=== PATIENT | male | born 1980 | race African-American/Black ===

== ENCOUNTER 2017-04-10 13:50 | Emergency (ER) | payer OTHER ==
[~2017-04-10] VITALS: Ht 188 cm; Wt 110.2 kg
--- NOTE | ~2017-04-10 | CR72 ---
[facility] A Service of [facility] / [facility] RADIOLOGY TEXT RESULTS PATIENT: JELENA TAVAREZ LOCATION: [facility] : 76 UNIT #: [id number] AGE: [address]: Ernesto Kaba MD SEX: M ORDER DR: [id number] [facility] [address] [place], [place] [address] [id number] MR#: [id number] Acc #: [id number] NAME: JELENA TAVAREZ. : 1980 SEX: M STUDY DATE/TIME: 04/10/2017 14:41 UNIT: [facility] ROOM: STUDY DESCRIPTION: CR Chest Single View Portable Attending Physician: Ernesto Kaba M.D. Ordering Physician: Ernesto Kaba M.D. Primary Care Physician: Primary Care Physician No MEDICAL IMAGING REPORT This report is preliminary unless electronic signature is present EXAM Portable chest 04/10/2017 HISTORY Shortness of breath chest pain and fatigue beginning 1 day ago. FINDINGS A single AP portable view of the chest shows both lungs to be clear. The heart is normal in size. The mediastinal contour is normal. No significant bone abnormalities are seen. IMPRESSION Normal portable chest. Dictated by... Juan José Oro M.D. THIS IS AN ELECTRONICALLY VERIFIED REPORT Juan José Oro M.D. at 04/11/2017 6:34 AM PAULA/yuval TD: 04/11/2017 02:03 JOB #: [id number] MEDICAL IMAGING REPORT Page 1 of 1 COPY
--- NOTE | ~2017-04-10 | EKG ---
PATIENT: JELENA TAVAREZ UNIT #: [id number] Ventricular Rate: 89 BPM Atrial Rate: 91 BPM QRS Duration: 90 ms Q-T Interval: 344 ms QTC Calculation(Bezet): 418 ms Calculated R [place]: -13 degrees Calculated T [place]: -8 degrees Diagnosis Line: Atrial fibrillation Diagnosis Line: Abnormal ECG Diagnosis Line: No previous ECGs available Diagnosis Line: Confirmed by FOSTER ONEAL MD ([id number]) on 04/12/2017 Diagnosis Line: 1:57:35 PM INTERPRETING MD: JM FIELDS
[~2017-04-10 13:50] MED LIST: LISINOPRIL10 MG PO
[2017-04-10 15:16] LABS: BASOPHIL# 0.1 X10e3 (0-0.3); BASOPHIL% 0.8 % (0-2.5); EOSINOPHIL# 0.1 X10e3 (0-0.7); EOSINOPHIL% 1.4 % (0.0-7.0); HEMATOCRIT 48.9 % (38.0-50.0); HEMOGLOBIN 16.7 gm/dL (13.0-16.0); LYMPHOCYTE# 3.9 X10e3 (1.0-3.5); LYMPHOCYTE% 55.8 % (17.0-45.0); MEAN CELL VOLUME 92.2 FL (83-96); MEAN CORPUSCULAR HEMOGLOBIN 31.4 PG (28-34); MEAN CORPUSCULAR HGB CONC 34.1 g/dL (30-36); MEAN PLATELET VOLUME 7.4 FL (6.5-11.5); MONOCYTE# 0.7 X10e3 (0-1.0); NEUTROPHIL# 2.3 X10e3 (1.5-7.1); PLATELET COUNT 268 X10e3 (140-420); RED CELL DISTRIBUTION WIDTH 13.3 % (11.0-15.5); WHITE BLOOD COUNT 7.1 X10e3 (4.0-10.5)
[2017-04-10 15:17] LABS: DIFF IND YES
[2017-04-10 15:19] LABS: POC - CKMB 1.1 ng/mL (0.0-7.9); POC - TROPONIN <0.05 ng/mL (<=0.05)
[2017-04-10 15:31] LABS: PLATELET ESTIMATE NORMAL (NORMAL); RBC NORMAL YES
[2017-04-10 15:34] LABS: ALBUMIN SERUM 4.8 g/dL (3.5-5.0); BILIRUBIN, DIRECT 0.1 mg/dL (0.0-0.2); BILIRUBIN,INDIRECT 0.4 mg/dL (0.0-0.9); BILIRUBIN,TOTAL 0.5 mg/dL (0.2-2.0); CALCIUM SERUM 10.2 mg/dL (8.4-10.2); GLOM FILT RATE Estimated 110.2 mL/min (>60); POTASSIUM 3.8 mmol/L (3.5-5.1); PROTEIN TOTAL SERUM 8.6 g/dL (6.0-8.3)
== END 2017-04-10 16:30 | disposition home or self-care (01) ==
LOC: CED 13:50
PROVIDERS: Emergency Medicine
DX: I48.0 Paroxysmal atrial fibrillation (principal); R53.1 Weakness; I10 Essential (primary) hypertension; F17.200 Nicotine dependence, unspecified, uncomplicated
CPT/HCPCS: 36415; 71010; 80048; 80076; 82553; 84484; 85025; 85379; 93005; 99285

== ENCOUNTER 2017-04-26 15:10 | Emergency (ER) | payer OTHER ==
[~2017-04-26] VITALS: Ht 188 cm; Wt 111.1 kg
--- NOTE | ~2017-04-26 | EKG ---
PATIENT: JELENA TAVAREZ UNIT #: [id number] Ventricular Rate: 89 BPM Atrial Rate: 89 BPM P-R Interval: 176 ms QRS Duration: 92 ms Q-T Interval: 370 ms QTC Calculation(Bezet): 450 ms P [place]: 31 degrees Calculated T [place]: 2 degrees Diagnosis Line: Normal sinus rhythm Diagnosis Line: Normal ECG Diagnosis Line: When compared with ECG of 10-APR-2017 14:42, Diagnosis Line: Sinus rhythm has replaced Atrial fibrillation Diagnosis Line: Confirmed by MIGUEL ÁNGEL MOORE MD ([id number]) on Diagnosis Line: 04/27/2017 12:35:22 PM INTERPRETING MD: TERESA FIELDS
[2017-04-26 19:35] LABS: BASOPHIL# 0.1 X10e3 (0-0.3); BASOPHIL% 1.1 % (0-2.5); EOSINOPHIL# 0.2 X10e3 (0-0.7); EOSINOPHIL% 2.7 % (0.0-7.0); HEMATOCRIT 40.9 % (38.0-50.0); LYMPHOCYTE# 3.6 X10e3 (1.0-3.5); LYMPHOCYTE% 55.5 % (17.0-45.0); MEAN CELL VOLUME 92.4 FL (83-96); MEAN CORPUSCULAR HEMOGLOBIN 31.7 PG (28-34); MEAN CORPUSCULAR HGB CONC 34.3 g/dL (30-36); MEAN PLATELET VOLUME 7.3 FL (6.5-11.5); MONOCYTE# 0.6 X10e3 (0-1.0); MONOCYTE% 8.7 % (3.0-12.0); NEUTROPHIL# 2.1 X10e3 (1.5-7.1); PLATELET COUNT 228 X10e3 (140-420); RED BLOOD COUNT 4.43 X10e (3.90-5.60); RED CELL DISTRIBUTION WIDTH 13.5 % (11.0-15.5); WHITE BLOOD COUNT 6.5 X10e3 (4.0-10.5)
[2017-04-26 19:37] LABS: DIFF IND YES
[2017-04-26 20:02] LABS: POC - CKMB <1.0 ng/mL (0.0-7.9); POC - TROPONIN <0.05 ng/mL (<=0.05)
[2017-04-26 20:03] LABS: ANISOCYTOSIS SL; PLATELET ESTIMATE NORMAL (NORMAL)
[2017-04-26 20:05] LABS: BUN/CREATININE RATIO 15.45; CALCIUM SERUM 9.5 mg/dL (8.4-10.2); CREATININE SERUM 1.1 mg/dL (0.6-1.4); GLOM FILT RATE Estimated 98.2 mL/min (>60); POTASSIUM 3.7 mmol/L (3.5-5.1)
== END 2017-04-26 20:23 | disposition home or self-care (01) ==
LOC: CED 15:10
PROVIDERS: Emergency Medicine
DX: R00.2 Palpitations (principal); Z76.0 Encounter for issue of repeat prescription; I10 Essential (primary) hypertension; I48.91 Unspecified atrial fibrillation; F17.210 Nicotine dependence, cigarettes, uncomplicated
CPT/HCPCS: 36415; 80048; 82553; 84484; 85025; 93005; 99285